=== PATIENT | female | born 1930 | race Caucasian/White ===

== ENCOUNTER 2017-09-30 22:20 | Emergency (ER) | payer MEDICARE, OTHER ==
[2017-09-30 23:09] LABS: BASOPHIL % 0.3 % (0.0-2.0); EOSINOPHIL # 0.1 TH/MM3 (0-0.4); EOSINOPHIL % 0.8 % (0.0-4.0); HEMATOCRIT 33.4 % (35.0-46.0); HEMO FLAGS DIFF FINAL; HEMOGLOBIN 11.1 GM/DL (11.6-15.3); LYMPH % 13.6 % (9.0-44.0); LYMPHOCYTE # 0.9 TH/MM3 (1.0-4.8); MEAN CELL VOLUME 82.4 FL (80.0-100.0); MEAN CORPUSCULAR HEMOGLOBIN 27.3 PG (27.0-34.0); MEAN CORPUSCULAR HGB CONC 33.1 % (32.0-36.0); MEAN PLATELET VOLUME 8.3 FL (7.0-11.0); MONO % 9.4 % (0.0-8.0); MONOCYTE # 0.6 TH/MM3 (0-0.9); NEUT % 75.9 % (16.0-70.0); PLATELET COUNT 195 TH/MM3 (150-450); RED BLOOD COUNT 4.05 MIL/MM3 (4.00-5.30); RED CELL DISTRIBUTION WIDTH 16.3 % (11.6-17.2); WHITE BLOOD COUNT 6.6 TH/MM3 (4.0-11.0)
[2017-09-30 23:13] LABS: INTERNATIONAL NORMALIZED RATIO 1.4 RATIO; PROTHROMBIN TIME - PATIENT 13.8 SEC (9.8-11.6)
[2017-09-30 23:19] LABS: ANION GAP 4 MEQ/L (5-15); BICARBONATE 31.9 MEQ/L (21.0-32.0); BLOOD UREA NITROGEN 19 MG/DL (7-18); CALCIUM 8.5 MG/DL (8.5-10.1); CHLORIDE 98 MEQ/L (98-107); CREATININE 0.98 MG/DL (0.50-1.00); GLOMERULAR FILTRATION RATE 54 ML/MIN (>89); GLUCOSE,RANDOM 121 MG/DL (74-106); SODIUM (NA) 134 MEQ/L (136-145)
[2017-09-30 23:20] LABS: POTASSIUM 5.4 MEQ/L (3.5-5.1)
[2017-09-30] MEDS: ACETAMINOPHEN 325 MG TAB PO (23:30)
[2017-09-30 23:36] LABS: BILIRUBIN, URINE NEG (NEG); BLOOD, URINE SMALL (NEG); GLUCOSE,URINE NEG (NEG); HYALINE CAST, URINE 1 /lpf (RARE); KETONE, URINE NEG (NEG); MUCUS URINE FEW /lpf (OCC); NITRITE,URINE NEG (NEG); RENAL EPITHELIAL CELLS <1 /hpf; URINE COLOR LIGHT-YELLOW (YELLW/STRAW); URINE LEUKOCYTE ESTERASE NEG (NEG)
[2017-09-30 23:37] LABS: COMMENT (UR) CATH-CULT NOT IND; CULTURE IF INDICATED CATH CULTURE NOT IND
[2017-10-01] MEDS: ACETAMINOPHEN/HYDROcodone 325 MG/5 MG TAB PO (02:15)
== END 2017-10-01 10:29 | disposition home or self-care (01) ==
LOC: NEPE 22:20 → NEPD 10-01 10:29
DX: S02.31XA Fracture of orbital floor, right side, initial encounter for closed fracture (principal); S01.81XA Laceration without foreign body of other part of head, initial encounter; M54.2 Cervicalgia; E78.00 Pure hypercholesterolemia, unspecified; I48.91 Unspecified atrial fibrillation; I11.0 Hypertensive heart disease with heart failure; I50.9 Heart failure, unspecified; J44.9 Chronic obstructive pulmonary disease, unspecified; G89.29 Other chronic pain; W05.0XXA Fall from non-moving wheelchair, initial encounter; Y92.129 Unspecified place in nursing home as the place of occurrence of the external cause; Z79.01 Long term (current) use of anticoagulants
CPT/HCPCS: 12015; 70450; 70486; 72125; 80048; 81001; 85025; 85610; 99285-25

== ENCOUNTER 2017-10-09 11:58 | Emergency (ER) | payer MEDICARE, OTHER ==
[~2017-10-09] VITALS: Ht 160 cm; Wt 90.0 kg
[~2017-10-09 11:58] MED LIST: CYMB30CA PO; FURO1TAB61 PO; HYDR-3516 PO; KLOR10TA PO; LORA-392 PO; MS C15TA7 PO; OXYGEN NAS.CANULA; PRED10 PO; SIMV20TA PO; XARE20TA PO
[2017-10-09 12:20] VITALS: BP 132/76; PULSE 106; RESP 17; TEMP 98.7
--- NOTE | 2017-10-09 12:53 | PD ---
HPI Chief Complaint: Fall Time Seen by Provider: 12:40 Travel History International Travel<30 days: No Contact w/Intl Traveler<30days: No Traveled to known affect area: No History of Present Illness HPI 87-year-old female with PMH of CHF, COPD, CVA, pacemaker, HTN, A. fib presents to the ED for evaluation of right hip pain. Patient states that she fell on September 30. She was evaluated here at the ED. She states that she has had 10/ 10 right hip pain since then. Pain is worse with transfer from bed to the wheelchair. She has been nonambulatory since the accident. She states that she is normally ambulatory with a walker. She was seen at her primary care providers today for suture removal. At that time she complained about hip pain and they recommended that she come to the ED for an xray. Patient does not have an orthopedist. PFSH Past Medical History Atrial Fibrillation: Yes Heart Rhythm Problems: Yes ([employer]ACE [employer]) Cardiovascular Problems: Yes (CHF ) High Cholesterol: Yes Congestive Heart Failure: Yes COPD: Yes (2L NC ) Cerebrovascular Accident: Yes Diminished Hearing: No Hypertension: Yes Respiratory: Yes (COPD) ?: Not Past Surgical History Pacemaker: Yes Social History Alcohol Use: No Tobacco Use: No Substance Use: No Allergies-Medications (Allergen,Severity, Reaction): Coded Allergies: meperidine (Verified Allergy, Unknown, 09/30/17) Reported Meds & Prescriptions Reported Meds & Active Scripts Active Reported Xarelto (Rivaroxaban) 20 Mg Tab 20 Mg PO DAILY Hydrocodone-Acetaminophen 5-325 mg Tab 1 Tab PO Q4H PRN Klor-Con 10 (Potassium Chloride) 10 Meq Tab 10 Meq PO BID Simvastatin 20 Mg Tab 20 Mg PO DAILY Lasix (Furosemide) 80 Mg Tab 80 Mg PO BID Ms Contin (Morphine Sulfate) 15 Mg Tab 90 Mg PO Q12HR Ativan (Lorazepam) 0.5 Mg Tab 0.5 Mg PO Q4H PRN Cymbalta DR (Duloxetine HCl) 30 Mg Capdr 30 Mg PO DAILY Prednisone 10 Mg Tab 10 Mg PO DAILY Review of Systems Except as stated in HPI: all other systems reviewed are Neg Physical Exam Narrative GENERAL: Well-nourished, well-developed white female in no acute distress. SKIN: Focused skin assessment warm/dry. HEAD: Normocephalic. Old ecchymosis over the face and neck. Lacerations over the right eyebrow with sutures in place. No signs of infection. EYES: No scleral icterus. No drainage. PERRLA. EOMI. ENT: Pearly gomez tympanic membranes bilaterally. Oropharynx without erythema, edema, exudate. Uvula midline. Airway patent. NECK: Supple, trachea midline. No JVD or lymphadenopathy. CARDIOVASCULAR: Regular rate and rhythm without murmurs, gallops, or rubs. RESPIRATORY: Breath sounds clear and equal bilaterally. No accessory muscle use. GASTROINTESTINAL: Abdomen soft, non-tender, nondistended. MUSCULOSKELETAL: No cyanosis, or edema. FOCUSED RIGHT LOWER EXTREMITY EXAM: Tender to palpation of the anterior lateral right hip and groin. No visible foreshortening or external rotation. Patient is able to wiggle the toes and flex and extend the ankle. BACK: Nontender . Scoliosis deformity of the lower thoracic spine. No CVA tenderness. Data Data Last Documented VS Vital Signs Date Time Temp Pulse Resp B/P (MAP) Pulse Ox O2 Delivery O2 Flow Rate FiO2 10/09/17 18:18 10/09/17 18:17 89 19 95 Nasal Cannula 2.00 10/09/17 12:20 98.7 Orders Orders Acetamin-Hydrocod 325-5 Mg (Sealy 5-325 (10/09/17 13:00) Hip, Uni(Ap&Lat) W Ap Pelvis (10/09/17 12:53) Ct Hip W/O Contrast (10/09/17 ) Ed Discharge Order (10/09/17 15:49) MDM Medical Decision Making Medical Screen Exam Complete: Yes Emergency Medical Condition: Yes Differential Diagnosis Contusion versus fracture versus musculoskeletal pain versus other Narrative Course 87-year-old female with PMH of CHF, COPD, CVA, pacemaker, HTN, A. fib presents to the ED for evaluation of right hip pain. Patient states that she fell on September 30, was evaluated here at the ED. She states that she has had 10/10 right hip pain since then. Pain is worse with transfer from bed to the wheelchair. She has been nonambulatory since the accident. She states that she is normally ambulatory with a walker. Patient's tachycardic on presentation , this resolves in the exam room. She does have tenderness to palpation of the anterior lateral aspect of the right hip and groin. No foreshortening noted. Patient is able to lift the leg, internal and externally rotate the leg. Neurovascularly intact distally. Patient was administered 5 mg Sealy. X-ray of the hip reveals "probable" femoral neck fracture. CT scan revealed intact hip. This is contusion. Patient's instructed to follow up with the orthopedist this week. Patient's daughter at bedside indicated understanding of the instructions. The patient was stable and discharged home. Diagnosis Primary Impression: Contusion of right hip Qualified Codes: S70.01XA - Contusion of right hip, initial encounter Referrals: Darlene Leung MD Patient Instructions: Contusion in Adults (ED), General Instructions Additional Instructions: Rest, hydrate. Return to normal, gentle activity as tolerated. Continue with at-home medications as previously prescribed. Call the orthopedist office today for a follow-up appointment next week. Return to the ED for any urgent or emergent medical condition. Disposition: 01 DISCHARGE HOME Condition: Stable Suellen Gillis Oct 09, 2017 12:53
[2017-10-09] MEDS ORDERED: ACETAMINOPHEN/HYDROcodone 325 MG/5 MG TAB PO ONE (13:00)
--- NOTE | 2017-10-09 13:44 | RADRPT ---
EXAM DATE/TIME: 10/09/2017 13:17 [facility] COMPARISON: No previous studies available for comparison. INDICATIONS : Fell 1 1/2 weeks ago, posterior right hip pain with motion and weight bearing. MEDICAL HISTORY : None. SURGICAL HISTORY : None. ENCOUNTER: Initial ACUITY: 1 week PAIN SCORE: 7/10 LOCATION: Right hip. FINDINGS: Examination of the right hip was performed with AP Pelvis. Probable nondisplaced femoral neck fractur e. No dislocation. Mild osteoarthritis of each hip. CONCLUSION: Probable nondisplaced right femoral neck fracture. Noncontrast CT scan recommended. Demond Angelo MD on October 09, 2017 at 13:41 Board Certified Radiologist. This report was verified electronically.
--- NOTE | 2017-10-09 15:30 | RADRPT ---
EXAM DATE/TIME: 10/09/2017 14:51 [facility] COMPARISON: HIP RIGHT (AP&LAT 2/3VWS) W AP PELVIS, October 09, 2017, 13:17. INDICATIONS : Fall 9 days ago. Right hip pain. RADIATION DOSE: 24.92 CTDIvol (mGy) MEDICAL HISTORY : Cardiovascular disease. Chronic obstructive pulmonary disease. Hypertension. SURGICAL HISTORY : None. ENCOUNTER: Initial ACUITY: 1 week PAIN SCALE: 5/10 LOCATION: Right pelvis TECHNIQUE: Volumetric scanning of the hip was performed. Using automated exposure control and adjustment of the mA and/or kV according to patient size, radiation dose was kept as low as reasonably achievable to o btain optimal diagnostic quality images. DICOM format image data is available electronically for rev iew and comparison. FINDINGS: BONES: There is diffuse osteopenia. Degenerative changes are noted in the lumbar spine. The hips are symmetr ic and intact with mild degenerative change. There is no evidence of a joint effusion or fracture. Th e pubic rami are intact as well. There are mild degenerative changes involving the symphysis pubis. JOINTS: No evidence of joint narrowing or effusion. SOFT TISSUES: Muscles, tendons and neurovascular structures are grossly unremarkable. No evidence of mass, organize d fluid collection, or foreign body. CONCLUSION: The hips are intact with no evidence of fracture or malalignment. Roderick Green MD on October 09, 2017 at 15:22 Board Certified Radiologist. This report was verified electronically.
[2017-10-09 15:31] VITALS: BP 144/87; PULSE 99; RESP 17; O2SAT 96
[2017-10-09 18:17] VITALS: BP 138/80; PULSE 89; RESP 19; O2SAT 95
== END 2017-10-09 18:19 | disposition home or self-care (01) ==
LOC: NEPE 11:58
DX: S70.01XA Contusion of right hip, initial encounter (principal); I48.91 Unspecified atrial fibrillation; I11.0 Hypertensive heart disease with heart failure; I50.9 Heart failure, unspecified; E78.00 Pure hypercholesterolemia, unspecified; J44.9 Chronic obstructive pulmonary disease, unspecified; W19.XXXA Unspecified fall, initial encounter; Z79.01 Long term (current) use of anticoagulants
CPT/HCPCS: 73502; 73700; 99284